=== PATIENT | female | born 1995 | race Caucasian/White ===

== ENCOUNTER → 2020-05-21 | Outpatient (CLI) | payer OTHER | LOC: EMI 15:40 | DX: S49.92XA Unspecified injury of left shoulder and upper arm, initial encounter (principal); W19.XXXA Unspecified fall, initial encounter | CPT/HCPCS: 73221 ==

== ENCOUNTER 2021-04-24 22:14 | Emergency (ER) | payer OTHER ==
[2021-04-25] MEDS ORDERED: LODINE CAP 300300 MG PO (01:29)
[2021-04-25] MEDS ORDERED: ZOFRAN ODT 4 MG4 MG PO (01:29)
== END 2021-04-25 01:35 | disposition home or self-care (01) ==
LOC: ER1 22:14
DX: S82.831A Other fracture of upper and lower end of right fibula, initial encounter for closed fracture (principal); W01.0XXA Fall on same level from slipping, tripping and stumbling without subsequent striking against object, initial encounter
CPT/HCPCS: 29515; 73610; 73630; 99283

== ENCOUNTER → 2021-05-11 | Outpatient (CLI) | payer OTHER ==
[~2021-05-11] MED LIST: LODINE CAP 300300 MG PO; ZOFRAN ODT 4 MG4 MG PO
== END ==
LOC: KOH-I 11:16
DX: S82.401A Unspecified fracture of shaft of right fibula, initial encounter for closed fracture (principal)
CPT/HCPCS: 73610

== ENCOUNTER → 2021-06-04 | Outpatient (CLI) | payer OTHER | LOC: KOH-I 14:19 | DX: S82.831A Other fracture of upper and lower end of right fibula, initial encounter for closed fracture (principal) | CPT/HCPCS: 73610 ==

== ENCOUNTER → 2021-06-25 | Outpatient (CLI) | payer OTHER | LOC: KOH-I 15:12 | DX: S82.61XD Displaced fracture of lateral malleolus of right fibula, subsequent encounter for closed fracture with routine healing (principal); R60.0 Localized edema; X58.XXXD Exposure to other specified factors, subsequent encounter | CPT/HCPCS: 73610 ==

== ENCOUNTER → 2021-07-23 | Outpatient (CLI) | payer OTHER | LOC: KOH-I 15:06 | DX: S82.831D Other fracture of upper and lower end of right fibula, subsequent encounter for closed fracture with routine healing (principal); X58.XXXD Exposure to other specified factors, subsequent encounter | CPT/HCPCS: 73610 ==

== ENCOUNTER 2021-11-20 07:54 | Emergency (ER) | payer OTHER ==
[2021-11-20 08:43] LABS: HEMOGLOBIN 14.2 gm/dl (12.3-15.3); RED BLOOD COUNT 4.67 M/UL (4.00-5.10); WHITE BLOOD COUNT 4.2 K/UL (4.5-11.0)
[2021-11-20 09:16] LABS: BUN/CREATININE RATIO 15 (0-10)
[2021-11-20] MEDS ORDERED: PROVENTIL HFA6.7 GM INH (11:19)
== END 2021-11-20 11:25 | disposition home or self-care (01) ==
LOC: ER1 07:54
PROVIDERS: Physician Assistant
DX: U07.1 COVID-19 (principal); E87.6 Hypokalemia; J45.909 Unspecified asthma, uncomplicated; Z91.040 Latex allergy status; Z88.0 Allergy status to penicillin; Z88.8 Allergy status to other drugs, medicaments and biological substances
CPT/HCPCS: 0240U; 71045; 80053; 81001; 85025; 87086; 94760; 96374; 99283; J1885

== ENCOUNTER → 2021-12-21 | Outpatient (CLI) | payer OTHER ==
[~2021-12-21] MED LIST changes: +PROVENTIL HFA6.7 GM INH
== END ==
LOC: EMI 10:28
DX: R51.9 Headache, unspecified (principal)
CPT/HCPCS: 70551

== ENCOUNTER → 2021-12-29 | Outpatient (CLI) | payer OTHER | LOC: KOH-I 08:15 | DX: R74.01 Elevation of levels of liver transaminase levels (principal) | CPT/HCPCS: 76705 ==